=== PATIENT | female | born 1950 | race Caucasian/White ===

== ENCOUNTER 2018-03-12 11:51 | Emergency (ER) | payer MEDICARE, BC ==
[2018-03-12] MEDS: TETANUS/DIPHTHERIA TOX ADSORB ADULT 0.5ML SYR/VIAL (90714) IM (13:25)
[2018-03-12] MEDS: ACETAMINOPHEN 325 MG TAB PO (13:26)
== END 2018-03-12 13:43 | disposition home or self-care (01) ==
LOC: M ED 11:51
DX: S01.01XA Laceration without foreign body of scalp, initial encounter (principal); S50.01XA Contusion of right elbow, initial encounter; W01.10XA Fall on same level from slipping, tripping and stumbling with subsequent striking against unspecified object, initial encounter; Y92.009 Unspecified place in unspecified non-institutional (private) residence as the place of occurrence of the external cause; K21.9 Gastro-esophageal reflux disease without esophagitis; Z88.8 Allergy status to other drugs, medicaments and biological substances; Z88.5 Allergy status to narcotic agent; Z79.899 Other long term (current) drug therapy
CPT/HCPCS: 90714

== ENCOUNTER 2023-05-21 10:24 | Emergency (ER) | payer MEDICARE ==
[~2023-05-21] VITALS: Ht 157.5 cm; Wt 75.6 kg
[~2023-05-21 10:24] MED LIST: OMEP10CASR PO
[2023-05-21 10:38] VITALS: TEMP 97.6
[2023-05-21 11:01] LABS: BASO % 0.2 % (0.0-1.0); EOS % 0.1 % (0.0-3.0); HEMATOCRIT 41.7 % (36.0-47.0); HEMOGLOBIN 13.6 g/dl (12.0-15.5); LYMPH # 1.1 10^3/uL (1.5-5.0); LYMPH % 12.9 % (24.0-44.0); MEAN CORPUSCULAR HEMOGLOBIN 29.8 pg (27.0-33.0); MEAN CORPUSCULAR HGB CONC 32.6 g/dl (32.0-36.5); MEAN CORPUSCULAR VOLUME 91.4 fl (80.0-96.0); MONO # 0.2 10^3/uL (0.0-0.8); MONO % 2.8 % (2.0-8.0); NEUTROPHILS # 7.1 10^3/uL (1.5-8.5); NEUTROPHILS % 83.4 % (36.0-66.0); PLATELET COUNT, AUTOMATED 271 10^3/uL (150-450); RED BLOOD COUNT 4.56 10^6/uL (4.00-5.40); WHITE BLOOD COUNT 8.5 10^3/uL (4.0-10.0)
[2023-05-21 11:14] LABS: INR 0.98; PROTHROMBIN TIME 12.7 SECONDS (12.5-14.5)
[2023-05-21 11:15] LABS: PARTIAL THROMBOPLASTIN TIME 26.3 SECONDS (24.8-34.2)
[2023-05-21] MEDS: MORPHINE 2 MG/ML 1ML VIAL IV PRN ×2 (11:19→12:36)
[2023-05-21] MEDS ORDERED: ISOVUE-370 76% 100ML VIAL As Ordered ONE (11:22)
[2023-05-21] MEDS ORDERED: ONDANSETRON 4MG 2ML VIAL IV ONE (11:25)
[2023-05-21 11:31] LABS: LIPASE 32 U/L (12-53)
[2023-05-21 11:33] LABS: ALBUMIN 4.3 G/DL (3.2-5.2); ALKALINE PHOSPHATASE 83 U/L (46-116); ALT/SGPT 29 U/L (7.0-40); AMYLASE 69 U/L (30-118); AST/SGOT 23 U/L (<34); BILIRUBIN,DIRECT 0.2 MG/DL (<0.4); BILIRUBIN,TOTAL 0.7 MG/DL (0.3-1.2); CK-MB VALUE MASS < 1.0 NG/ML (<3.6); TOTAL PROTEIN 7.8 G/DL (5.7-8.2)
[2023-05-21 11:38] LABS: CPK CREATINE PHOSPHOKINASE 92 U/L (34-145); MB/CK RELATIVE INDEX 1.08 (< OR =4)
[2023-05-21 13:22] LABS: CK-MB VALUE MASS < 1.0 NG/ML (<3.6)
[2023-05-21 13:23] LABS: CPK CREATINE PHOSPHOKINASE 81 U/L (34-145); MB/CK RELATIVE INDEX 1.23 (< OR =4)
[2023-05-21] MEDS ORDERED: PANTOPRAZOLE 40MG VIAL IV ONE (14:10)
[2023-05-21] MEDS ORDERED: SUCRALFATE SUSP 1GM/10ML UD PO ONE ×2 (14:10→16:25)
[2023-05-21 16:00] VITALS: BP 143/76
[2023-05-21] MEDS ORDERED: OMEP40CA4 PO ×2 (16:16→16:17)
[2023-05-21] MEDS ORDERED: SUCR1TA PO ×2 (16:16→16:17)
[2023-05-21 16:30] VITALS: O2SAT 96
== END 2023-05-21 16:53 | disposition home or self-care (01) ==
LOC: M ED 10:24
DX: K29.70 Gastritis, unspecified, without bleeding (principal); K80.20 Calculus of gallbladder without cholecystitis without obstruction; K76.89 Other specified diseases of liver; K57.30 Diverticulosis of large intestine without perforation or abscess without bleeding; R91.1 Solitary pulmonary nodule; Z79.899 Other long term (current) drug therapy; Z88.8 Allergy status to other drugs, medicaments and biological substances
CPT/HCPCS: 71045; 71275; 74174; 76705; 80047; 80076; 82150; 82550; 82553; 83605; 83690; 84484; 85025; 85610; 85730; 86850; 86900; 86901; 87486; 87581; 87633; 87798; 93005; 93041; 96374; 96375; 96376; 99285; C9113; J2405; Q9967